=== PATIENT | female | born 1945 | race Caucasian/White ===

== ENCOUNTER 2016-11-06 17:09 | Emergency (ER) | payer MEDICARE, OTHER ==
[2016-11-06] MEDS ORDERED: CLINDAMYCIN HCL 150 MG CAPSULE ONE (19:09)
== END 2016-11-06 19:37 | disposition home or self-care (01) ==
LOC: ED 17:09
DX: L03.311 Cellulitis of abdominal wall (principal); S80.811A Abrasion, right lower leg, initial encounter; E03.9 Hypothyroidism, unspecified; X58.XXXA Exposure to other specified factors, initial encounter; Y92.9 Unspecified place or not applicable